=== PATIENT | male | born 1955 | race Caucasian/White ===

== ENCOUNTER 2017-06-01 18:44 | Emergency (ER) | payer OTHER ==
[~2017-06-01] VITALS: Ht 175.3 cm; Wt 86.4 kg
[2017-06-01 18:48] VITALS: Ht 175.3 cm; Wt 86.4 kg
[2017-06-01 19:01] LABS: BASOPHIL # 0.1 10^3/ul (0.0-0.1); BASOPHILS % 0.5 % (0.0-2.0); EOSINOPHILS # 0.3 10^3/ul (0.0-0.5); EOSINOPHILS % 2.6 % (0.0-7.0); HEMATOCRIT 29.7 % (42.0-52.0); LYMPHOCYTES # 2.5 10^3/ul (0.8-2.9); LYMPHOCYTES % 26.1 % (15.0-51.0); MEAN CORPUSCULAR HGB CONC 33.7 g/dl (32.0-37.0); MEAN CORPUSCULAR VOLUME 89.2 fl (82.0-101.0); MEAN PLATELET VOLUME 9.5 fl (7.4-10.4); MONOCYTE # 0.7 10^3/ul (0.3-0.9); MONOCYTES % 7.7 % (0.0-11.0); NEUTROPHILS % 62.1 % (39.0-77.0); PLATELET COUNT 286 10^3/UL (140-415); RED BLOOD COUNT 3.33 10^6/ul (4.70-6.10); RED CELL DISTRIBUTION WIDTH 14.5 % (11.5-14.5); WHITE BLOOD COUNT 9.6 10^3/ul (4.8-10.8)
--- NOTE | 2017-06-01 19:06 | RADRPT ---
PROCEDURE: CT Brain without contrast. CLINICAL INDICATION: Code stroke TECHNIQUE: A CT of the brain was performed on a [employer]peed 64-slice CT scanner utilizing axial imaging from the skull base through the vertex without IV contrast. Multiplanar reformatted images were made. Images were reviewed on a PACS workstation. The CTDIvol is 43.35 mGy and the DLP is 890 .55 mGycm. One of the following 3 dose reduction techniques were used: Automated exposure control; adjustment of the mA and/or kV according to patient size; or use of iterative reconstruction technique. COMPARISON: None available FINDINGS: There is no intracranial hemorrhage, mass effect, or midline shift. No extra-axial fluid collection is seen. The ventricles and sulci are age appropriate. Mild diffuse volume loss is present. Confl uent decreased attenuation is present in the bilateral subcortical white matter, bilateral centrum s emiovale bilateral periventricular white matter compatible with moderate chronic microvascular ische john disease. Ill-defined decreased attenuation is noted in the right periatrial white matter and th e occipital lobe and the posterior temporal lobe compatible with an acute non hemorrhagic infarct. In addition hypodensities are noted in the bilateral thalami capsular junctions compatible with inde terminate age and possibly acute non hemorrhagic infarcts. Hypodensities are noted in the bilateral basal ganglia compatible with mild chronic bilateral basal ganglia lacunar infarcts. A small linea r hypodensity is noted in the right cerebellum compatible with a chronic small vessel infarct. A focus of indeterminate age ischemia or infarct is noted in the left sheyla jaymie. Moderate vascular ca lcifications are present in the bilateral intracranial internal carotid arteries and the vertebral a rteries. The visualized scalp and calvarium are normal. The bilateral orbits are normal. The bilateral paran hernandez sinuses demonstrate chronic mucosal thickening in the right frontal ethmoid sinus and left post erior ethmoid and the left maxillary and sphenoid sinuses. The bilateral mastoid air cells and midd le ear cavities are clear. IMPRESSION: 1. Acute non hemorrhagic right periatrial occipital and temporal lobe infarcts. 2. Indeterminate age bilateral thalami capsular and bilateral basal ganglia lacunar infarcts. 3. Moderate chronic microvascular ischemic disease and mild diffuse volume loss. 4. Moderate atherosclerotic vascular disease. 5. Chronic sinus disease as indicated above. A call report was made to Dr. Maurer at 06/01/2017 7:00:56 PM following the completion of the examinati on by the undersigned. RPTAT: HDC .Disha Thomson MD, MD Date Time Electronically viewed and signed by .Disha Thomson MD, MD on 06/01/2017 19:06 .C/
--- NOTE | 2017-06-01 19:18 | RADRPT ---
PROCEDURE: XR Chest. CLINICAL INDICATION: Possible stroke. TECHNIQUE: Single frontal view of the chest. COMPARISON: None. FINDINGS: Tracheostomy tube at midline. Hypoinflated lungs accentuate cardiac silhouette and pulmonary vascul ar markings. There is cardiomegaly. Mild vascular crowding at the lung bases. No signs of pleural fluid or pneumothorax are seen. Question sclerotic changes in the lateral and anterior left fourth a nd fifth ribs, perhaps representing metastatic neoplasm deposits. Otherwise, the osseous structures and soft tissues are unremarkable. IMPRESSION: 1. No evidence for active cardiopulmonary disease. 2. Question sclerotic changes in the lateral and anterior left fourth and fifth ribs, perhaps repre senting metastatic neoplasm deposits. 3. CT examination the chest may be of further use. RPTAT: [facility] Physician Casa Date Time Electronically viewed and signed by Physician Casa on 06/01/2017 19:18 RS/
[2017-06-01] MEDS ORDERED: ATOR20TA38 GTB (19:27)
[2017-06-01 19:32] LABS: INR 1.09; PROTIME 14.1 Sec (12.2-14.2); PT RATIO 1.1
[2017-06-01 19:33] LABS: PARTIAL THROMBOPLASTIN TIME 36.1 Sec (25.0-35.0)
[2017-06-01 19:34] LABS: ANION GAP 15 (8-16); BLOOD UREA NITROGEN 31 mg/dl (7-20); CALCIUM 9.3 mg/dl (8.4-10.2); CARBON DIOXIDE 27 mmol/L (21-31); CHLORIDE 98 mmol/L (97-110); CREATININE 1.21 mg/dl (0.61-1.24); GLUCOSE 174 mg/dl (70-220); POTASSIUM 4.9 mmol/L (3.5-5.1); SODIUM 135 mmol/L (135-144)
[2017-06-01] MEDS ORDERED: POTA20TA96 GTB (19:34)
[2017-06-01] MEDS ORDERED: ACET160O41 GTB (19:35)
[2017-06-01] MEDS ORDERED: MAGN400O4 GTB (19:36)
[2017-06-01] MEDS ORDERED: BISA10SU75 PR (19:37)
[2017-06-01] MEDS ORDERED: OXYC-279 GTB (19:41)
[2017-06-01] MEDS ORDERED: TRAZ50TA18 GTB (19:42)
[2017-06-01] MEDS ORDERED: LORA1TAB GTB (19:43)
[2017-06-01] MEDS ORDERED: METO-448 GTB (19:45)
[2017-06-01 19:47] LABS: TROPONIN-I < 0.012 ng/ml (0.00-0.12)
[2017-06-01] MEDS ORDERED: DOCU-144 GTB (19:47)
[2017-06-01] MEDS ORDERED: QUET25TA33 GTB (19:47)
[2017-06-01] MEDS ORDERED: NPH,100I5 SQ (19:49)
[2017-06-01] MEDS ORDERED: SS SC (19:55)
[2017-06-01] MEDS ORDERED: AMAN100C65 GTB (19:56)
[2017-06-01] MEDS ORDERED: AMLO5TAB4 GTB (19:57)
[2017-06-01] MEDS ORDERED: CLON1PAT3 TD (19:59)
[2017-06-01] MEDS ORDERED: FAMO20TA18 GTB (20:00)
[2017-06-01] MEDS ORDERED: ASPIRIN 325 MG TAB PO ONE (20:30)
[2017-06-01] MEDS ORDERED: SOD CHLORIDE 0.9% 100 ML ONE (20:35)
[2017-06-01] MEDS ORDERED: IODIXANOL LOCM 100 ML BTL ONE (20:35)
[2017-06-01 21:19] VITALS: BP 121/68; PULSE 64; RESP 22; TEMP 99.9
--- NOTE | 2017-06-01 21:30 | ERA ---
ER Documentation Chief Complaint Date/Time DATE: 06/01/17 TIME: 21:20 Chief Complaint LEFT SIDED WEAKNESS HPI This 61-year-old male came by paramedics for reported left-sided weakness onset 1744. The patient is trach mask patient who is hard of hearing. History taking is difficult. Patient states that he is able to move his left arm and when asked to do so he twitches his left hand. He does the same with his left leg. According to his medication list is not any blood thinners. This history is not adequate on stroke patient therefore I called his then his son and his daughter. It turned out that his daughter was the one who is with him when the incident occurred. The incident did not involve his left side specifically but involved him saying he had a headache asking for a Tylenol and then being unable to talk for short time of the paramedics were called and the patient came in. He has residual left-sided deficits from his prior stroke in which he is barely able to move his left hand and is unable to walk because of left-sided leg deficits. ROS Unobtainable Medications Home Meds Reported Medications Famotidine* (Famotidine*) 20 Mg Tablet, 20 MG GTB DAILY, #30 TAB 06/01/17 Clonidine Patch (CLONIDINE PATCH) 0.3 Mg/24 Hr Patch, 1 PATCH.WK TD QSATURDAY, # 4 PATCH.WK HOLD IF SBP<110 06/01/17 Amlodipine Besylate* (Norvasc*) 5 Mg Tablet, 5 MG GTB BID, TAB HOLD IF SBP<110 06/01/17 Amantadine Hcl* (Amantadine Hcl*) 100 Mg Capsule, 100 MG GTB BID, #60 CAP 06/01/17 Insulin Human Regular (Novolin-R U-100) 100 Unit/Ml Soln, 0 SC SLIDING SCALE AC , EA IF BS<70 GIVE 4PACK OF SUGAR MIXED WITH ANY 8OZ JUICE VIA GTB AND CALL 70-149=0 UNITS,150-199=2 UNITS,200-249=4 UNITS,250-299=7 UNITS,300-349=10 UNITS,IF BS>350=12 UNITS AND CALL 06/01/17 NPH, Human Insulin Isophane (Humulin N Kwikpen) 100 Unit/1 Ml Insuln.pen, 20 UNIT SQ Q12H, EA HOLD IF BS<100 06/01/17 Docusate Sodium* (Colace*) 100 Mg Capsule, 200 MG GTB DAILY, #30 CAP 06/01/17 Quetiapine Fumarate* (Quetiapine Fumarate*) 25 Mg Tablet, 25 MG GTB HS, TAB 06/01/17 Metoprolol Tartrate* (Lopressor*) 25 Mg Tab, 25 MG GTB BID, #60 TAB HOLD IF SBP<110,HR<60 06/01/17 Lorazepam* (Lorazepam*) 1 Mg Tablet, 1 MG GTB Q4H Y for ANXIETY, #60 TAB 06/01/17 Trazodone Hcl* (Trazodone Hcl*) 50 Mg Tablet, 50 MG GTB QHS, #30 TAB 06/01/17 Oxycodone HCl/Acetaminophen (Percocet 5-325 mg Tablet) 1 Each Tablet, 1 EACH GTB Q4H, TAB 06/01/17 Bisacodyl* (Bisacodyl*) 10 Mg Supp, 10 MG MI DAILY, SUPP GIVE 1 SUP. IF MOM IS INEFECTIVE,AND GIVE 2ND DOSE OF DUCOL. AFTER 4HRS IF STILL NOT EFFECTIVE 06/01/17 Magnesium Hydroxide* (Milk Of Magnesia*) 400 Mg/5 Ml Oral.susp, 30 ML GTB QHS, ML 06/01/17 Acetaminophen* (Acetaminophen* Susp) 160 Mg/5 Ml Oral.susp, 640 MG GTB Q4H Y for MILD PAIN LEVEL 1-3, ML FOR TEMP 101 AND ABOVE 06/01/17 Potassium Chloride* (Potassium Chloride*) 20 Meq Tablet.er, 20 MEQ GTB DAILY, TAB.SA 06/01/17 Atorvastatin Calcium* (Atorvastatin Calcium*) 20 Mg Tablet, 20 MG GTB QHS, #30 TAB 06/01/17 Allergies Allergies: Coded Allergies: No Known Allergy (Unverified , 06/01/17) PMhx/Soc History of Surgery: Yes (TRACH, G TUBE, ABDOMINAL TRAUMA REPAIR) Anesthesia Reaction: No Hx Neurological Disorder: Yes (CVA) Hx Respiratory Disorders: Yes (RESPIRATORY FAILURE) Hx Cardiac Disorders: No Hx Psychiatric Problems: No Hx Miscellaneous Medical Probl: Yes (DM, DIABETIC RETINOPATHY, OA) Hx Alcohol Use: Yes Hx Substance Use: No Hx Tobacco Use: No Smoking Status: Never smoker Physical Exam Vitals Vital Signs Date Time Temp Pulse Resp B/P Pulse Ox O2 Delivery O2 Flow Rate FiO2 06/01/17 20:14 99.9 63 14 122/70 98 Trach Collar 6.0 06/01/17 18:48 99.1 63 20 128/66 98 06/01/17 18:48 99.1 66 20 121/64 99 Mechanical Ventilator Trach Collar 06/01/17 18:45 99 6.0 50 Physical Exam Const: [] No obvious distress Head: Atraumatic Eyes: Normal Conjunctiva ENT: Normal External Ears, Nose and Mouth. Neck: Full range of motion..~Trach mask in place.. Resp: Clear to auscultation bilaterally Cardio: Regular rate and rhythm, no murmurs Abd: Soft, non tender, non distended. Normal bowel sounds Skin: No petechiae or rashes Back: No midline or flank tenderness Ext: No cyanosis, or edema Neur: Awake and alert nnd apparently oriented, able to move right side well. Patient will not smile at all when asked to smile, touches his left hand when asked to move his left arm and does not move his left leg. Is able to answer some questions. For all neurological exam not possible secondary to patient's lack of cooperation Psych: Normal Mood and Affect Result Diagram: 06/01/17184906/01/171849 Results 24 hrs Laboratory Tests Test 06/01/17 18:50 White Blood Count 9.610^3/ul Red Blood Count 3.3310^6/ul Hemoglobin 10.0g/dl Hematocrit 29.7% Mean Corpuscular Volume 89.2fl Mean Corpuscular Hemoglobin 30.0pg Mean Corpuscular Hemoglobin Concent 33.7g/dl Red Cell Distribution Width 14.5% Platelet Count 82509^3/UL Mean Platelet Volume 9.5fl Neutrophils % 62.1% Lymphocytes % 26.1% Monocytes % 7.7% Eosinophils % 2.6% Basophils % 0.5% Nucleated Red Blood Cells % 0.0/100WBC Neutrophils # (Manual) 6.010^3/ul Lymphocytes # 2.510^3/ul Monocytes # 0.710^3/ul Eosinophils # 0.310^3/ul Basophils # 0.110^3/ul Nucleated Red Blood Cells # 0.010^3/ul Prothrombin Time 14.1Sec Prothrombin Time Ratio 1.1 INR International Normalized Ratio 1.09 Activated Partial Thromboplast Time 36.1Sec Sodium Level 135mmol/L Potassium Level 4.9mmol/L Chloride Level 98mmol/L Carbon Dioxide Level 27mmol/L Anion Gap 15 Blood Urea Nitrogen 31mg/dl Creatinine 1.21mg/dl Glucose Level 174mg/dl Hemoglobin A1c 6.3% Calcium Level 9.3mg/dl Troponin I < 0.012ng/ml Current Medications Medications (Trade) Dose Ordered Sig/Ashley Route PRN Reason Start Time Stop Time Status Last Admin Dose Admin Aspirin (Aspirin) 325 mg ONCE ONCE PO 06/01/17 20:30 06/01/17 20:31 DC 06/01/17 20:34 IV Flush 10 ml 10 ml STK-MED ONCE .ROUTE 06/01/17 20:35 06/01/17 20:36 DC Sodium Chloride (NS) 100 ml @ ud STK-MED ONCE .ROUTE 06/01/17 20:35 06/01/17 20:36 DC Iodixanol (Visipaque Locm) 100 ml STK-MED ONCE .ROUTE 06/01/17 20:35 06/01/17 20:36 DC Procedures/MDM Apparent TIA. Family did arrive eventually and patient was speaking to them and they say his speech is a little different but is definitely better than he was before. With resolving deficits patient is not a TPA candidate. Radiologist read his stroke as having acute strokes in 3 different lobes of the brain. This is unlikely as some of his deficits explain his left-sided weakness that was already present. Negative for hemorrhagic stroke. Patient was given 325 mg aspirin. [facility] called shortly after and the patient will have to be transferred secondary insurance reasons. Patient's vital signs are stable no signs of ischemia. He will be transferred to [place] for further management. EKG interpretation: Normal sinus rhythm rate of 66, normal axis, no ST or T- wave changes concerning for acute ischemia. Normal EKG air sampling and monitoring interpretation: Normal sinus rhythm without arrhythmia CT head interpretation: Multiple strokes acute versus chronic, no hemorrhagic stroke, no midline shift or mass-effect, no skull fractures Chest x-ray interpretation: See no acute process, no wide mediastinum, no infiltrates, no pneumothorax, no fracture Departure Diagnosis: Primary Impression: Acute CVA (cerebrovascular accident) Condition: Serious LA NENASIOBHANANKURKHALIDA BUTT Jun 01, 2017 21:30
== END 2017-06-01 22:54 | disposition short-term general hospital (02) ==
LOC: E/R 18:44
DX: I63.9 Cerebral infarction, unspecified (principal); E11.9 Type 2 diabetes mellitus without complications; R51 Headache; Z79.4 Long term (current) use of insulin
CPT/HCPCS: 36415; 70450; 71010; 80048; 83036; 84484; 85025; 85610; 85730; 93005; 99285; Q9967